=== PATIENT | male | born 1970 | race Caucasian/White ===

== ENCOUNTER 2017-01-03 12:57 | Inpatient (IN) | payer SELFPAY ==
[2017-01-03] MEDS ORDERED: HYDROmorphone 0.5 MG/0.5 ML Syringe IVPUSH ONE (13:29)
--- NOTE | 2017-01-03 13:33 | EDM.PDOC ---
[id number]: PAIN IN STOMACH AREA Time Seen by Provider: 01/03/17 13:15 Source of Information: Reports: Patient History Limitations: Reports: No Limitations - History of Present Illness INITIAL COMMENTS - FREE TEXT/NARRATIVE: 46-year-old male with lower abdominal pain for the past 48 hours. He stayed home from work on Sunday because he didn't feel well, thought he was a little better yesterday so went to work but was in a lot of pain by the time he came home. Did not sleep well last night and now he has significant lower abdominal pain, worse just to the right of midline in the suprapubic area. He feels if he urinates it actually helps the pain small amount. His developed a fever this morning. No history of abdominal surgeries or chronic illness. No testicular swelling or pain. Onset: Gradual (3 days ago) Location: Reports: Abdomen Quality: Reports: Pressure, Stabbing Severity: Moderate Worsens with: Reports: Movement Associated Symptoms: Reports: Fever/Chills, Loss of Appetite, Malaise. Denies: Nausea/Vomiting Pelvic Pain Score (Numeric/FACES): 10 - Related Data Allergies Allergy/AdvReac Type Severity Reaction Status Date / Time Penicillins Allergy Swelling Verified 01/03/17 13:23 Sulfa (Sulfonamide Allergy Swelling Verified 01/03/17 13:23 Antibiotics) Home Meds: Home Meds NK [No Known Home Meds] 01/03/17 [History] ED ROS GENERAL - Review of Systems Review Of Systems: See Below Constitutional: Reports: Fever, Malaise. Denies: Weakness HEENT: Reports: No Symptoms Respiratory: Denies: Shortness of Breath Cardiovascular: Denies: Chest Pain GI/Abdominal: Reports: Abdominal Pain. Denies: Diarrhea : Reports: Urgency, Other (Pain improves with urination) Skin: Reports: No Symptoms Neurological: Reports: No Symptoms Psychiatric: Reports: No Symptoms ED EXAM, GI/ABD - Physical Exam Exam: See Below Exam Limited By: No Limitations General Appearance: Alert, Mild Distress (Patient is quite uncomfortable, is having difficulty with ambulation) Respiratory/Chest: No Respiratory Distress, Lungs Clear Cardiovascular: Regular Rate, Rhythm GI/Abdominal Exam: Soft, Guarding, Rebound (Rebound tenderness is present across the lower abdomen, is guarding as well), Other (No groin pain bilaterally , no hernia) (Male) Exam: No: Testicular Mass Extremities: Normal Inspection Psychiatric: Normal Affect, Normal Mood Skin Exam: Warm, Dry Course - Vital Signs Last Recorded V/S: Last Vital Signs Temp 104.4 F H 01/03/17 17:30 Pulse 104 H 01/03/17 17:30 Resp 20 01/03/17 17:30 BP 113/68 01/03/17 17:30 Pulse Ox 91 L 01/03/17 17:30 - Orders/Labs/Meds Orders: Active Orders 24 hr Category Date Time Status Abdomen Pelvis w Cont [CT] Stat Exams 01/03/17 14:03 Taken HYDROmorphone [Dilaudid] Med 01/03/17 16:02 Active 0.5 - 1 mg IVPUSH Q2H PRN Medication Orders Acetaminophen (Tylenol) 650 mg PO Q4H PRN PRN Reason: Pain (Mild 1-3)/fever Last Admin: 01/03/17 17:17 Dose: 650 mg Hydromorphone HCl (Dilaudid) 0.5 - 1 mg IVPUSH Q2H PRN PRN Reason: Pain (severe 7-10) Last Admin: 01/03/17 17:18 Dose: 1 mg Ciprofloxacin/Dextrose 400 mg/ (Premix) 200 mls @ 200 mls/hr IV Q12H DEBBIE Metronidazole 500 mg/ Premix 100 mls @ 100 mls/hr IV Q8H DEBBIE Potassium Chloride/Dextrose/Sod Cl (D5 Ns With 20 Meq Kcl) 1,000 mls @ 100 mls/ hr IV ASDIRECTED DEBBIE Last Admin: 01/03/17 17:25 Dose: 100 mls/hr Ketorolac Tromethamine (Toradol) 30 mg IVPUSH Q6H PRN PRN Reason: Pain/Fever Stop: 01/08/17 16:59 Lactobacillus Rhamnosus (Culturelle) 1 cap PO BID DEBBIE Lorazepam (Ativan) 0.5 - 1 mg IVPUSH Q4H PRN PRN Reason: Nausea/Vomiting Ondansetron HCl (Zofran Odt) 4 mg PO Q6H PRN PRN Reason: Nausea able to take PO Ondansetron HCl (Zofran) 4 mg IV Q6H PRN PRN Reason: Nausea/Vomiting Pantoprazole Sodium (Protonix) 40 mg PO ACBREAKFAST DEBBIE Polyethylene Glycol (Miralax) 17 gm PO DAILY PRN PRN Reason: Constipation Senna/Docusate Sodium (Senna Plus) 1 tab PO BID PRN PRN Reason: Constipation Labs: Laboratory Tests 01/03/17 01/03/17 01/03/17 Range/Units 13:39 13:39 14:10 WBC 13.4 H (4.5-11.0) K/uL RBC 5.64 (4.30-5.90) M/uL Hgb 15.5 H (12.0-15.0) g/dL Hct 46.8 (40.0-54.0) % MCV 83 (80-98) fL MCH 28 (27-31) pg MCHC 33 (32-36) % Plt Count 240 (150-400) K/uL Neut % (Auto) 83 H (36-66) % Lymph % (Auto) 10 L (24-44) % [place] % (Auto) 6 (2-6) % Eos % (Auto) 0 L (2-4) % Baso % (Auto) 0 (0-1) % Sodium 136 L (140-148) mmol/L Potassium 4.2 (3.6-5.2) mmol/L Chloride 100 (100-108) mmol/L Carbon Dioxide 32 (21-32) mmol/L Anion Gap 8.2 (5.0-14.0) mmol/L BUN 14 (7-18) mg/dL Creatinine 1.2 (0.8-1.3) mg/dL Est Cr Clr Drug Dosing 82.63 mL/min Estimated GFR (MDRD) > 60 (>60) Glucose 109 H (74-106) mg/dL Calcium 8.8 (8.5-10.1) mg/dL Total Bilirubin 2.6 H (0.2-1.0) mg/dL AST 14 L (15-37) U/L ALT 33 (12-78) U/L Alkaline Phosphatase 84 (46-116) U/L Total Protein 8.2 (6.4-8.2) g/dL Albumin 3.4 (3.4-5.0) g/dL Globulin 4.8 H (2.3-3.5) g/dL Albumin/Globulin Ratio 0.7 L (1.2-2.2) Urine Color Yellow Urine Appearance Slightly cloudy Urine pH 7.0 (4.5-8.0) Ur Specific [place] 1.015 (1.008-1.030) Urine Protein Negative (NEGATIVE) mg/dL Urine Glucose (UA) Normal (NEGATIVE) mg/dL Urine Ketones Negative (NEGATIVE) mg/dL Urine Occult Blood Moderate (NEGATIVE) Urine Nitrite Negative (NEGAITVE) Urine Bilirubin Small (NEGATIVE) Urine Urobilinogen 4 (NORMAL) mg/dL Ur Leukocyte Esterase Negative (NEGATIVE) Urine RBC 10-20 H (0-5) Urine WBC 0-5 (0-5) Ur Epithelial Cells Few Amorphous Sediment Not seen Urine Bacteria Few Urine Mucus Not seen Meds: Medications Generic Name Dose Route Start Last Admin Trade Name Freq PRN Reason Stop Dose Admin Acetaminophen 650 mg 01/03/17 16:58 01/03/17 17:17 Tylenol PO 650 mg Q4H PRN Administration Pain (Mild 1-3)/fever Hydromorphone HCl 0.5 - 1 mg 01/03/17 16:02 01/03/17 17:18 Dilaudid IVPUSH 1 mg Q2H PRN Administration Pain (severe 7-10) Ciprofloxacin/Dextrose 400 mg/ 200 mls @ 200 mls/hr 01/03/17 21:00 Premix IV Q12H DEBBIE Metronidazole 500 mg/ Premix 100 mls @ 100 mls/hr 01/03/17 22:00 IV Q8H DEBBIE Potassium Chloride/Dextrose/Sod Cl 1,000 mls @ 100 mls/hr 01/03/17 16:58 17:25 D5 Ns With 20 Meq Kcl IV 100 mls/hr ASDIRECTED DEBBIE Administration Ketorolac Tromethamine 30 mg 01/03/17 16:58 Toradol IVPUSH 01/08/17 16:59 Q6H PRN Pain/Fever Lactobacillus Rhamnosus 1 cap 01/03/17 21:00 Culturelle PO BID DEBBIE Lorazepam 0.5 - 1 mg 01/03/17 16:58 Ativan IVPUSH Q4H PRN Nausea/Vomiting Ondansetron HCl 4 mg 01/03/17 16:58 Zofran Odt PO Q6H PRN Nausea able to take PO Ondansetron HCl 4 mg 01/03/17 16:58 Zofran IV Q6H PRN Nausea/Vomiting Pantoprazole Sodium 40 mg 01/04/17 07:30 Protonix PO ACBREAKFAST DEBBIE Polyethylene Glycol 17 gm 01/03/17 16:58 Miralax PO DAILY PRN Constipation Senna/Docusate Sodium 1 tab 01/03/17 16:58 Senna Plus PO BID PRN Constipation Discontinued Medications Generic Name Dose Route Start Last Admin Trade Name Freq PRN Reason Stop Dose Admin Hydromorphone HCl 0.5 mg 01/03/17 13:29 01/03/17 13:48 Dilaudid IVPUSH 01/03/17 13:30 0.5 mg ONETIME ONE Administration Hydromorphone HCl Confirm 01/03/17 13:37 Dilaudid Administered 01/03/17 13:38 Dose 1 mg .ROUTE .STK-MED ONE Sodium Chloride 1,000 mls @ 1,000 mls/hr 01/03/17 14:15 01/03/17 14:14 Normal Saline IV 1,000 mls/hr ASDIRECTED DEBBIE Administration Sodium Chloride 85 mls @ 3.5 mls/sec 01/03/17 14:15 01/03/17 14:53 Normal Saline IV 01/03/17 23:00 3.5 mls/sec ASDIRECTED DEBBIE Administration Cefoxitin Sodium 2 gm/ Sodium 50 mls @ 100 mls/hr 01/03/17 15:04 01/03/17 15: 29 Chloride IV 01/03/17 15:33 100 mls/hr ONETIME ONE Administration Iopamidol 150 ml 01/03/17 14:09 01/03/17 14:53 Isovue-300 (61%) IV 01/04/17 14:10 150 ml . DIRECTED PRN Administration RADIOLOGY EXAM Sodium Chloride 10 ml 01/03/17 14:09 01/03/17 14:53 Saline Flush FLUSH 01/03/17 14:10 10 ml ONETIME ONE Administration - Re-Assessments/Exams Free Text/Narrative Re-Assessment/Exam: 01/03/17 13:33 CBC and CMP as well as UA was obtained, IV started and patient was given 0.5 mg of IV Dilaudid. Intent is for an abdominal CT scan when creatinine returns. 01/03/17 15:50 White blood cell count is over 13,000, bilirubin 1.6, the rest of his labs are relatively normal. CT scan with IV contrast was obtained and showed diverticulitis of the sigmoid colon with microperforations. Patient will be hospitalized to the hospitalist service on IV antibiotics with surgical consultation if needed. 2 g of ceftazidime was started IV and he was also given 1 L of normal saline bolus. Departure - Departure Time of Disposition: 17:09 Disposition: Admitted As Inpatient 64 Condition: Fair Clinical Impression: Diverticulitis of colon with perforation Qualifiers: Diverticulitis bleeding: without bleeding Qualified Code(s): K57.20 - Diverticulitis of large intestine with perforation and abscess without bleeding - Discharge Information - My Orders Last 24 Hours: My Active Orders 01/03/17 14:03 Abdomen Pelvis w Cont [CT] Stat - Assessment/Plan Last 24 Hours: My Active Orders 01/03/17 14:03 Abdomen Pelvis w Cont [CT] Stat
[2017-01-03] MEDS ORDERED: HYDROmorphone 1 MG/ML Syringe ONE (13:37)
[2017-01-03] MEDS ORDERED: Sodium Chloride 0.9% 10 ML Syringe FLUSH ONE (14:09)
[2017-01-03] MEDS ORDERED: Iopamidol 612 MG/ML 150 ML Bottle IV PRN (14:09)
[2017-01-03] MEDS ORDERED: Sodium Chloride 0.9% 1,000 ML IV SCH (14:15)
[2017-01-03] MEDS ORDERED: cefOXitin 2 GM in Sodium Chloride 0.9% 50 ML IV ONE (15:04)
--- NOTE | 2017-01-03 16:20 | PCM.HP ---
H&P History of Present Illness - General Date of Service: 01/03/17 Admit Problem/Dx: Admission Diagnosis/Problem Admission Diagnosis/Problem Diverticulitis of colon with perforation Source of Information: Patient, Provider History Limitations: Reports: No Limitations - History of Present Illness Initial Comments - Free Text/Narative: Blayne presents to the emergency room today with 2 days of progressive mid abdominal pain. He reports sharp midabdominal pain that radiates throughout the abdomen. This is worse with movement and sitting down. Pain seems to be relieved by urinating. He has not been taking anything at home to make the pain better. He has developed nausea as well as vomiting during the day today. He has had subjective fevers over the past 48 hours and measured temperatures of 99.5. He has not had much of an appetite in the past 24 hours and has not eaten anything since last night. He has not noticed a change in his bowels or blood in his stool. No complaints of shortness of breath. No history of similar episodes. No sick contacts or travel. Workup in the emergency room revealed evidence for acute sigmoid diverticulitis with microperforations. He is febrile and has an elevated white blood cell count and will be admitted for IV antibiotics. Pelvic Pain Score (Numeric/FACES): 10 - Related Data Allergies/Adverse Reactions: Allergies Allergy/AdvReac Type Severity Reaction Status Date / Time Penicillins Allergy Swelling Verified 01/03/17 13:23 Sulfa (Sulfonamide Allergy Swelling Verified 01/03/17 13:23 Antibiotics) Home Medications: Home Meds NK [No Known Home Meds] 01/03/17 [History] Past Medical History - Past Surgical History Musculoskeletal Surgical History: Reports: Arthroscopic Knee, Carpal Tunnel Other Musculoskeletal Surgeries/Procedures:: right knee 1986. right wrist Social & Family History - Family History GI: Denies: Diverticulitis, Diverticulosis Oncologic: Denies: Colon - Tobacco Use Smoking Status *Q: Never Smoker - Caffeine Use Caffeine Use: Reports: Coffee - Alcohol Use Alcohol Use History: No - Recreational Drug Use Recreational Drug Use: No H&P Review of Systems - Review of Systems: Review Of Systems: See Below Free Text/Narrative: A complete 12 point review of systems was obtained. Pertinent positives and negatives are noted in the history of present illness. All other systems were reviewed and were negative except as noted. Exam - Exam Exam: See Below - Vital Signs Vital Signs: Last Vital Signs Temp 40 C H 01/03/17 15:06 Pulse 97 01/03/17 15:06 Resp 17 01/03/17 15:06 BP 166/79 H 01/03/17 15:06 Pulse Ox 97 01/03/17 15:06 Weight: 124.5 kg - Exam Quality Assessment: No: Supplemental Oxygen General: Alert, Oriented, Cooperative, Mild Distress HEENT: Conjunctiva Clear, Normal Nasal Septum. No: Mucosa Moist & [place] (dry), Scleral Icterus Neck: Supple, Trachea Midline. No: Lymphadenopathy, Thyromegaly Lungs: Clear to Auscultation, Normal Respiratory Effort Cardiovascular: Regular Rate, Regular Rhythm. No: Systolic Murmur GI/Abdominal Exam: Soft, No Distention, Tender (Moderate mid abdomen pain), Abnormal Bowel Sounds (Hypoactive). No: Guarding, Rebound Back Exam: Normal Inspection, Full Range of Motion Extremities: Normal Inspection, No Pedal Edema. No: Increased Warmth Peripheral Pulses: 2+: Dorsalis Pedis (L), Dorsalis Pedis (R) Skin: Warm, Dry, Intact Neuro Extensive - Mental Status: Alert, Oriented x3, Nl Response to Commands Neuro Extensive - Motor, Sensory, Reflexes: CN II-XII Intact. No: Dysarthria, Abnormal Motor, Tremor Psychiatric: Alert, Normal Affect - Patient Data Lab Results Last 24 hrs: Laboratory Results - last 24 hr 01/03/17 01/03/17 01/03/17 Range/Units 13:39 13:39 14:10 WBC 13.4 H (4.5-11.0) K/uL RBC 5.64 (4.30-5.90) M/uL Hgb 15.5 H (12.0-15.0) g/dL Hct 46.8 (40.0-54.0) % MCV 83 (80-98) fL MCH 28 (27-31) pg MCHC 33 (32-36) % Plt Count 240 (150-400) K/uL Neut % (Auto) 83 H (36-66) % Lymph % (Auto) 10 L (24-44) % [place] % (Auto) 6 (2-6) % Eos % (Auto) 0 L (2-4) % Baso % (Auto) 0 (0-1) % Sodium 136 L (140-148) mmol/L Potassium 4.2 (3.6-5.2) mmol/L Chloride 100 (100-108) mmol/L Carbon Dioxide 32 (21-32) mmol/L Anion Gap 8.2 (5.0-14.0) mmol/L BUN 14 (7-18) mg/dL Creatinine 1.2 (0.8-1.3) mg/dL Est Cr Clr Drug Dosing 82.63 mL/min Estimated GFR (MDRD) > 60 (>60) Glucose 109 H (74-106) mg/dL Calcium 8.8 (8.5-10.1) mg/dL Total Bilirubin 2.6 H (0.2-1.0) mg/dL AST 14 L (15-37) U/L ALT 33 (12-78) U/L Alkaline Phosphatase 84 (46-116) U/L Total Protein 8.2 (6.4-8.2) g/dL Albumin 3.4 (3.4-5.0) g/dL Globulin 4.8 H (2.3-3.5) g/dL Albumin/Globulin Ratio 0.7 L (1.2-2.2) Urine Color Yellow Urine Appearance Slightly cloudy Urine pH 7.0 (4.5-8.0) Ur Specific [place] 1.015 (1.008-1.030) Urine Protein Negative (NEGATIVE) mg/dL Urine Glucose (UA) Normal (NEGATIVE) mg/dL Urine Ketones Negative (NEGATIVE) mg/dL Urine Occult Blood Moderate (NEGATIVE) Urine Nitrite Negative (NEGAITVE) Urine Bilirubin Small (NEGATIVE) Urine Urobilinogen 4 (NORMAL) mg/dL Ur Leukocyte Esterase Negative (NEGATIVE) Urine RBC 10-20 H (0-5) Urine WBC 0-5 (0-5) Ur Epithelial Cells Few Amorphous Sediment Not seen Urine Bacteria Few Urine Mucus Not seen Result Diagrams: 01/03/17 13:39 01/03/17 13:39 Imaging Impressions Last 24 hrs: CT scan of the abdomen and pelvis - images personally reviewed - there is evidence for acute sigmoid diverticulitis with microperforations in the mid abdomen area. No evidence for abscess formation at this time. *Q Meaningful Use (ADM) - VTE *Q VTE Criteria *Q: - VTE Risk Assess *Q Each Risk Factor Represents 1 Point: Age 41 - 59 years, Obesity (BMI greater than 30) Total Score 1 Point Risk Factors: 2 Each Risk Factor Represents 2 Points: None Total Score 2 Point Risk Factors: 0 Each Risk Factor Represents 3 Points: None Total Score 3 Point Risk Factors: 0 Each Risk Factor Represents 5 Points: None Total Score 5 Point Risk Factors: 0 Venous Thromboembolism Risk Factor Score *Q: 2 - Stroke *Q Stroke Criteria *Q: - AMI *Q AMI Criteria *Q: - Problem List (1) Diverticulitis of colon with perforation SNOMED Code(s): 58094977 ICD Code: K57.20 - DVTRCLI OF LG INT W PERFORATION AND ABSCESS W/O BLEEDING Status: Acute Current Visit: Yes Qualifiers: Diverticulitis bleeding: without bleeding Qualified Code(s): K57.20 - Diverticulitis of large intestine with perforation and abscess without bleeding Problem List Initiated/Reviewed/Updated: Yes Orders Last 24hrs: Active Orders 24 hr Category Date Time Status Patient Status Manage Transfer [TRANSFER] Routine ADT 01/03/17 16:04 Ordered Abdomen Pelvis w Cont [CT] Stat Exams 01/03/17 14:03 Taken HYDROmorphone [Dilaudid] Med 01/03/17 16:02 Active 0.5 - 1 mg IVPUSH Q2H PRN Iopamidol [Isovue-300 (61%)] Med 01/03/17 14:09 Active 150 ml IV . DIRECTED PRN Sodium Chloride 0.9% [Normal Saline] 1,000 ml Med 01/03/17 14:15 Active IV ASDIRECTED Sodium Chloride 0.9% [Normal Saline] 85 ml Med 01/03/17 14:15 Active IV ASDIRECTED Resuscitation Status Routine Resus Stat 01/03/17 16:06 Ordered Medication Orders Hydromorphone HCl (Dilaudid) 0.5 - 1 mg IVPUSH Q2H PRN PRN Reason: Pain (severe 7-10) Sodium Chloride (Normal Saline) 1,000 mls @ 1,000 mls/hr IV ASDIRECTED DEBBIE Last Admin: 01/03/17 14:14 Dose: 1,000 mls/hr Sodium Chloride (Normal Saline) 85 mls @ 3.5 mls/sec IV ASDIRECTED DEBBIE Last Admin: 01/03/17 14:53 Dose: 3.5 mls/sec Iopamidol (Isovue-300 (61%)) 150 ml IV . DIRECTED PRN PRN Reason: RADIOLOGY EXAM Stop: 01/04/17 14:10 Last Admin: 01/03/17 14:53 Dose: 150 ml Assessment/Plan Comment:: Assessment and plan - Acute sigmoid diverticulitis with microperforation - CT scan suggests significant inflammation of the midabdomen with microperforations. No evidence for abscess formation. Significant fever, significant pain and leukocytosis. Patient would benefit from several days of inpatient management and IV antibiotics given the microperforations. No history of similar. -Ciprofloxacin and metronidazole -Pain control -IV fluids -Clear liquids -Surgical consultation if condition worsens -Outpatient colonoscopy Maintenance issues - - DVT prophylaxis - mechanical - GI prophylaxis - PPI - Nutrition - clear liquids - Ke[place] catheter - not indicated CODE STATUS - full code Admission justification - This patient will be admitted for inpatient services and is medically appropriate meeting medical necessity for inpatient admission as outlined in my documentation. I reasonably expect the patient will require inpatient services that span a period time over 2 midnights. I reasonably expect this patient to be discharged or transferred within 96 hours [facility]. Disposition - anticipate discharge home after the hospital stay Primary care physician - no primary care physician Kavon Hagen M.D.
[2017-01-03] MEDS ORDERED: Ondansetron 4 MG/2 ML SDV IV PRN (16:58)
[2017-01-03] MEDS ORDERED: LORazepam 2 MG/ML MDV IVPUSH PRN (16:58)
[2017-01-03] MEDS ORDERED: Ondansetron 4 MG Tab.DIS PO PRN (16:58)
[2017-01-03] MEDS ORDERED: Polyethylene Glycol 3350 Powder 17 GM Packet PO PRN (16:58)
[2017-01-03] MEDS: Acetaminophen 325 MG Tab PO PRN (17:17)
[2017-01-03] MEDS: HYDROmorphone 1 MG/ML Syringe IVPUSH PRN (17:18)
[2017-01-03] MEDS: Dextrose 5%-0.9% NaCl with KCl 1,000 ML IV SCH (17:25)
[2017-01-03] MEDS: Ketorolac 30 MG/ML SDV IVPUSH PRN (18:30)
[2017-01-03] MEDS: Ciprofloxacin in D5W 400 MG in Premix Bag 1 BAG IV SCH ×2 (20:28)
[2017-01-03] MEDS: Lactobacillus Rhamnosus GG (Probiotic) Cap PO SCH (20:30)
[2017-01-03] MEDS: metroNIDAZOLE/Normal Saline 500 MG in Premix Bag 1 BAG IV SCH (21:33)
[2017-01-04] MEDS: HYDROmorphone 1 MG/ML Syringe IVPUSH PRN (02:37)
[2017-01-04] MEDS: Acetaminophen 325 MG Tab PO PRN ×3 (02:43→18:50)
[2017-01-04] MEDS: Dextrose 5%-0.9% NaCl with KCl 1,000 ML IV SCH ×2 (04:44→20:36)
[2017-01-04] MEDS: metroNIDAZOLE/Normal Saline 500 MG in Premix Bag 1 BAG IV SCH ×3 (05:35→22:03)
[2017-01-04] MEDS: Lactobacillus Rhamnosus GG (Probiotic) Cap PO SCH ×2 (08:59→20:36)
[2017-01-04] MEDS: Pantoprazole 40 MG Tab.CR PO SCH (08:59)
[2017-01-04] MEDS: Ciprofloxacin in D5W 400 MG in Premix Bag 1 BAG IV SCH ×4 (08:59→20:35)
[2017-01-04] MEDS: Aztreonam/Dextrose-Water 1 GM in Premix Bag 1 BAG IV SCH ×2 (10:07→16:59)
--- NOTE | 2017-01-04 10:07 | PCM.PN ---
- General Info Date of Service: 01/04/17 Functional Status: Reports: Pain Controlled, Tolerating Diet - Review of Systems General: Reports: Fever Gastrointestinal: Reports: Abdominal Pain Systems Review Comment:: patient had difficulty with a fever overnight that finally seems to have broke this morning. Still has moderate mid abdominal pain but it seems a little better today, especially after having a bowel movement. No complaints of nausea no vomiting. Tolerating clear liquids so far. Blood cultures are negative so far. White blood cell count has risen from yesterday. Tolerating antibiotics so far. - Patient Data Vitals - most recent: Last Vital Signs Temp 37.7 C 01/04/17 07:18 Pulse 86 01/04/17 07:18 Resp 16 01/04/17 07:18 BP 110/77 01/04/17 07:18 Pulse Ox 97 01/04/17 07:18 Weight - most recent: 124.5 kg I&O - last 24 hours: Intake & Output 01/03/17 01/04/17 01/04/17 22:59 06:59 14:59 Intake Total 300 1015 900 Output Total 500 Balance 300 515 900 Lab Results last 24 hrs: Laboratory Results - last 24 hr 01/04/17 01/04/17 Range/Units 04:47 04:47 WBC 18.4 H (4.5-11.0) K/uL RBC 5.19 (4.30-5.90) M/uL Hgb 14.3 (12.0-15.0) g/dL Hct 43.4 (40.0-54.0) % MCV 84 (80-98) fL MCH 28 (27-31) pg MCHC 33 (32-36) % Plt Count 227 (150-400) K/uL Sodium 138 L (140-148) mmol/L Potassium 3.9 (3.6-5.2) mmol/L Chloride 103 (100-108) mmol/L Carbon Dioxide 26 (21-32) mmol/L Anion Gap 12.9 (5.0-14.0) mmol/L BUN 15 (7-18) mg/dL Creatinine 1.2 (0.8-1.3) mg/dL Est Cr Clr Drug Dosing 82.63 mL/min Estimated GFR (MDRD) > 60 (>60) Glucose 145 H (74-106) mg/dL Calcium 8.5 (8.5-10.1) mg/dL C-Reactive Protein 27.40 H (0.0-0.3) mg/dL Med Orders - Current: Current Medications Acetaminophen (Tylenol) 650 mg PO Q4H PRN PRN Reason: Pain (Mild 1-3)/fever Last Admin: 01/04/17 02:43 Dose: 650 mg Hydromorphone HCl (Dilaudid) 0.5 - 1 mg IVPUSH Q2H PRN PRN Reason: Pain (severe 7-10) Last Admin: 01/04/17 02:37 Dose: 1 mg Ciprofloxacin/Dextrose 400 mg/ (Premix) 200 mls @ 200 mls/hr IV Q12H [facility] Last Admin: 01/04/17 08:59 Dose: 200 mls/hr Metronidazole 500 mg/ Premix 100 mls @ 100 mls/hr IV Q8H [facility] Last Admin: 01/04/17 05:35 Dose: 100 mls/hr Potassium Chloride/Dextrose/Sod Cl (D5 Ns With 20 Meq Kcl) 1,000 mls @ 100 mls/ hr IV ASDIRECTED [facility] Last Admin: 01/04/17 04:44 Dose: 100 mls/hr Aztreonam/Dextrose 1 gm/ (Premix) 50 mls @ 100 mls/hr IV Q8H [facility] Ketorolac Tromethamine (Toradol) 30 mg IVPUSH Q6H PRN PRN Reason: Pain/Fever Stop: 01/08/17 16:59 Last Admin: 01/03/17 18:30 Dose: 30 mg Lactobacillus Rhamnosus (Culturelle) 1 cap PO BID [facility] Last Admin: 01/04/17 08:59 Dose: 1 cap Lorazepam (Ativan) 0.5 - 1 mg IVPUSH Q4H PRN PRN Reason: Nausea/Vomiting Ondansetron HCl (Zofran Odt) 4 mg PO Q6H PRN PRN Reason: Nausea able to take PO Ondansetron HCl (Zofran) 4 mg IV Q6H PRN PRN Reason: Nausea/Vomiting Pantoprazole Sodium (Protonix) 40 mg PO ACBREAKFAST [facility] Last Admin: 01/04/17 08:59 Dose: 40 mg Polyethylene Glycol (Miralax) 17 gm PO DAILY PRN PRN Reason: Constipation Senna/Docusate Sodium (Senna Plus) 1 tab PO BID PRN PRN Reason: Constipation Discontinued Medications Hydromorphone HCl (Dilaudid) 0.5 mg IVPUSH ONETIME ONE Stop: 01/03/17 13:30 Last Admin: 01/03/17 13:48 Dose: 0.5 mg Hydromorphone HCl (Dilaudid) Confirm Administered Dose 1 mg .ROUTE .STK-MED ONE Stop: 01/03/17 13:38 Last Admin: 01/03/17 18:38 Dose: Not Given Sodium Chloride (Normal Saline) 1,000 mls @ 1,000 mls/hr IV ASDIRECTED [facility] Last Admin: 01/03/17 14:14 Dose: 1,000 mls/hr Sodium Chloride (Normal Saline) 85 mls @ 3.5 mls/sec IV ASDIRECTED [facility] Stop: 01/03/17 23:00 Last Admin: 01/03/17 14:53 Dose: 3.5 mls/sec Cefoxitin Sodium 2 gm/ Sodium (Chloride) 50 mls @ 100 mls/hr IV ONETIME ONE Stop: 01/03/17 15:33 Last Admin: 01/03/17 15:29 Dose: 100 mls/hr Iopamidol (Isovue-300 (61%)) 150 ml IV . DIRECTED PRN PRN Reason: RADIOLOGY EXAM Stop: 01/04/17 14:10 Last Admin: 01/03/17 14:53 Dose: 150 ml Sodium Chloride (Saline Flush) 10 ml FLUSH ONETIME ONE Stop: 01/03/17 14:10 Last Admin: 01/03/17 14:53 Dose: 10 ml - Exam Quality Assessment: No: supplemental oxygen General: alert, oriented, cooperative, no acute distress Neck: supple Lungs: Normal Respiratory Effort Cardiovascular: Regular Rate, Regular Rhythm GI/Abdominal Exam: Soft, No Distention, Tender Extremities: Normal Inspection, No Pedal Edema Skin: warm, dry Psy/Mental Status: alert, normal affect - Problem List & Annotations (1) Diverticulitis of colon with perforation SNOMED Code(s): 78790924 Code(s): K57.20 - DVTRCLI OF LG INT W PERFORATION AND ABSCESS W/O BLEEDING Status: Acute Current Visit: Yes Qualifiers: Diverticulitis bleeding: without bleeding Qualified Code(s): K57.20 - Diverticulitis of large intestine with perforation and abscess without bleeding - Problem List Review Problem List Initiated/Reviewed/Updated: Yes - My Orders Last 24 Hours: My Active Orders 01/03/17 16:06 Resuscitation Status Routine 01/03/17 16:58 Patient Status [ADT] Routine Intake and Output [RC] QSHIFT Notify Provider Vital Signs [RC] ASDIRECTED Oxygen Therapy [RC] PRN Up ad Lavonne [RC] ASDIRECTED VTE/DVT Education [RC] Per Unit Routine Vital Signs [RC] Q4H Acetaminophen [Tylenol] 650 mg PO Q4H PRN Dextrose 5%-0.9% NaCl with KCl [D5 NS with 20 mEq KCl] 1,000 ml IV ASDIRECTED Docusate Sodium/Sennosides [Senna Plus] 1 tab PO BID PRN Ketorolac [Toradol] 30 mg IVPUSH Q6H PRN LORazepam [Ativan] 0.5 - 1 mg IVPUSH Q4H PRN Ondansetron [Zofran ODT] 4 mg PO Q6H PRN Ondansetron [Zofran] 4 mg IV Q6H PRN Polyethylene Glycol 3350 [MiraLAX] 17 gm PO DAILY PRN Sequential Compression Device [OM.PC] Per Unit Routine 01/03/17 21:00 Ciprofloxacin in D5W [Cipro in D5W 400 MG/200 ML] 400 mg Premix Bag 1 bag IV Q12H Lactobacillus Rhamnosus GG [Culturelle] 1 cap PO BID 01/03/17 22:00 metroNIDAZOLE/Normal Saline [Flagyl 500 MG in NS 100 ML] 500 mg Premix Bag 1 bag IV Q8H 01/03/17 Dinner Clear Liquid Diet [DIET] 01/04/17 07:30 Pantoprazole [ProTONIX] 40 mg PO ACBREAKFAST 01/04/17 09:00 Aztreonam/Dextrose-Water [Azactam in Dextrose,Iso-Osmotic 1 GM/50 ML] 1 gm Premix Bag 1 bag IV Q8H 01/05/17 05:00 BASIC METABOLIC PANEL,BMP [CHEM] Timed CBC W/O DIFF,HEMOGRAM [HEME] Timed (1) MAGNESIUM [CHEM] Timed - Plan Plan:: Assessment and plan - Acute sigmoid diverticulitis with microperforation - CT scan suggests fairly impressive inflammation with microperforations. White blood cell count has risen since yesterday. Patient febrile much of the night. Pain is a little better today. -Ciprofloxacin and metronidazole -add aztreonam -Pain control -IV fluids -Clear liquids -Surgical consultation if condition worsens -Outpatient colonoscopy Maintenance issues - - DVT prophylaxis - mechanical - GI prophylaxis - PPI - Nutrition - clear liquids Disposition - anticipate discharge home after the hospital stay Kavon Hagen M.D.
[2017-01-04] MEDS: Ketorolac 30 MG/ML SDV IVPUSH PRN ×2 (10:13→18:47)
[2017-01-05] MEDS: Aztreonam/Dextrose-Water 1 GM in Premix Bag 1 BAG IV SCH ×3 (00:29→17:10)
[2017-01-05] MEDS: Acetaminophen 325 MG Tab PO PRN ×2 (03:06→19:54)
[2017-01-05] MEDS: Ketorolac 30 MG/ML SDV IVPUSH PRN (04:17)
[2017-01-05] MEDS: metroNIDAZOLE/Normal Saline 500 MG in Premix Bag 1 BAG IV SCH ×3 (05:57→22:56)
[2017-01-05] MEDS: Lactobacillus Rhamnosus GG (Probiotic) Cap PO SCH ×2 (07:59→21:35)
[2017-01-05] MEDS: Pantoprazole 40 MG Tab.CR PO SCH (07:59)
[2017-01-05] MEDS ORDERED: oxyCODONE 5 MG Tab PO PRN (10:03)
--- NOTE | 2017-01-05 10:05 | PCM.PN ---
- General Info Date of Service: 01/05/17 Functional Status: Reports: Pain Controlled, Tolerating Diet, Ambulating - Review of Systems General: Reports: Fever Gastrointestinal: Reports: Abdominal Pain Systems Review Comment:: Patient did have a fever again overnight and had a general feeling of unwell with this but the fever spike was not as high as previous fevers. This morning his abdominal pain is quite a bit improved. He has been having bowel movements and has not had any blood in his stool. No complaints of nausea. White blood cell count is now trending down. Cultures are negative at this point. - Patient Data Vitals - most recent: Last Vital Signs Temp 37.4 C 01/05/17 07:26 Pulse 70 01/05/17 07:26 Resp 16 01/05/17 07:26 BP 113/78 01/05/17 07:26 Pulse Ox 98 01/05/17 07:26 Weight - most recent: 124.5 kg I&O - last 24 hours: Intake & Output 01/04/17 01/05/17 01/05/17 22:59 06:59 14:59 Intake Total 300 2470 Balance 300 2470 Lab Results last 24 hrs: Laboratory Results - last 24 hr 01/05/17 01/05/17 Range/Units 05:00 05:00 WBC 14.5 H (4.5-11.0) K/uL RBC 4.90 (4.30-5.90) M/uL Hgb 13.2 (12.0-15.0) g/dL Hct 41.0 (40.0-54.0) % MCV 84 (80-98) fL MCH 27 (27-31) pg MCHC 32 (32-36) % Plt Count 216 (150-400) K/uL Sodium 140 (140-148) mmol/L Potassium 3.8 (3.6-5.2) mmol/L Chloride 106 (100-108) mmol/L Carbon Dioxide 24 (21-32) mmol/L Anion Gap 9.9 (5.0-14.0) mmol/L BUN 14 (7-18) mg/dL Creatinine 1.1 (0.8-1.3) mg/dL Est Cr Clr Drug Dosing 90.27 mL/min Estimated GFR (MDRD) > 60 (>60) Glucose 133 H (74-106) mg/dL Calcium 8.6 (8.5-10.1) mg/dL Magnesium 1.7 L (1.8-2.4) mg/dL Med Orders - Current: Current Medications Acetaminophen (Tylenol) 650 mg PO Q4H PRN PRN Reason: Pain (Mild 1-3)/fever Last Admin: 01/05/17 03:06 Dose: 650 mg Hydromorphone HCl (Dilaudid) 0.5 - 1 mg IVPUSH Q2H PRN PRN Reason: Pain (severe 7-10) Last Admin: 01/04/17 02:37 Dose: 1 mg Ciprofloxacin/Dextrose 400 mg/ (Premix) 200 mls @ 200 mls/hr IV Q12H [facility] Last Admin: 01/04/17 20:35 Dose: 200 mls/hr Metronidazole 500 mg/ Premix 100 mls @ 100 mls/hr IV Q8H [facility] Last Admin: 01/05/17 05:57 Dose: 100 mls/hr Aztreonam/Dextrose 1 gm/ (Premix) 50 mls @ 100 mls/hr IV Q8H [facility] Last Admin: 01/05/17 07:59 Dose: 100 mls/hr Ketorolac Tromethamine (Toradol) 30 mg IVPUSH Q6H PRN PRN Reason: Pain/Fever Stop: 01/08/17 16:59 Last Admin: 01/05/17 04:17 Dose: 30 mg Lactobacillus Rhamnosus (Culturelle) 1 cap PO BID [facility] Last Admin: 01/05/17 07:59 Dose: 1 cap Lorazepam (Ativan) 0.5 - 1 mg IVPUSH Q4H PRN PRN Reason: Nausea/Vomiting Ondansetron HCl (Zofran Odt) 4 mg PO Q6H PRN PRN Reason: Nausea able to take PO Ondansetron HCl (Zofran) 4 mg IV Q6H PRN PRN Reason: Nausea/Vomiting Pantoprazole Sodium (Protonix) 40 mg PO ACBREAKFAST [facility] Last Admin: 01/05/17 07:59 Dose: 40 mg Polyethylene Glycol (Miralax) 17 gm PO DAILY PRN PRN Reason: Constipation Senna/Docusate Sodium (Senna Plus) 1 tab PO BID PRN PRN Reason: Constipation Discontinued Medications Hydromorphone HCl (Dilaudid) 0.5 mg IVPUSH ONETIME ONE Stop: 01/03/17 13:30 Last Admin: 01/03/17 13:48 Dose: 0.5 mg Hydromorphone HCl (Dilaudid) Confirm Administered Dose 1 mg .ROUTE .STK-MED ONE Stop: 01/03/17 13:38 Last Admin: 01/03/17 18:38 Dose: Not Given Sodium Chloride (Normal Saline) 1,000 mls @ 1,000 mls/hr IV ASDIRECTED [facility] Last Admin: 01/03/17 14:14 Dose: 1,000 mls/hr Sodium Chloride (Normal Saline) 85 mls @ 3.5 mls/sec IV ASDIRECTED [facility] Stop: 01/03/17 23:00 Last Admin: 01/03/17 14:53 Dose: 3.5 mls/sec Cefoxitin Sodium 2 gm/ Sodium (Chloride) 50 mls @ 100 mls/hr IV ONETIME ONE Stop: 01/03/17 15:33 Last Admin: 01/03/17 15:29 Dose: 100 mls/hr Potassium Chloride/Dextrose/Sod Cl (D5 Ns With 20 Meq Kcl) 1,000 mls @ 100 mls/ hr IV ASDIRECTED [facility] Last Admin: 01/04/17 20:36 Dose: 100 mls/hr Iopamidol (Isovue-300 (61%)) 150 ml IV . DIRECTED PRN PRN Reason: RADIOLOGY EXAM Stop: 01/04/17 14:10 Last Admin: 01/03/17 14:53 Dose: 150 ml Sodium Chloride (Saline Flush) 10 ml FLUSH ONETIME ONE Stop: 01/03/17 14:10 Last Admin: 01/03/17 14:53 Dose: 10 ml - Exam Quality Assessment: No: supplemental oxygen General: alert, oriented, cooperative, no acute distress HEENT: Pupils equal. No: Scleral icterus Neck: supple Lungs: Normal Respiratory Effort GI/Abdominal Exam: Soft, Non-Tender, No Distention Extremities: No Pedal Edema Skin: warm, dry Psy/Mental Status: alert, normal affect - Problem List & Annotations (1) Diverticulitis of colon with perforation SNOMED Code(s): 63472199 Code(s): K57.20 - DVTRCLI OF LG INT W PERFORATION AND ABSCESS W/O BLEEDING Status: Acute Current Visit: Yes Qualifiers: Diverticulitis bleeding: without bleeding Qualified Code(s): K57.20 - Diverticulitis of large intestine with perforation and abscess without bleeding - Problem List Review Problem List Initiated/Reviewed/Updated: Yes - My Orders Last 24 Hours: My Active Orders 01/05/17 10:02 Magnesium Sulfate/Water [Magnesium Sulfate 2 GM in Water 50 ML] 2 gm Premix Bag 1 bag IV ONETIME 01/05/17 10:03 oxyCODONE 5 mg PO Q4H PRN 01/05/17 10:15 Dextrose 5%-0.9% NaCl with KCl [D5 NS with 20 mEq KCl] 1,000 ml IV ASDIRECTED 01/06/17 05:00 CBC W/O DIFF,HEMOGRAM [HEME] Timed (1) POTASSIUM,K [CHEM] Timed - Plan Plan:: Assessment and plan - Acute sigmoid diverticulitis with microperforation - CT scan suggests fairly impressive inflammation with microperforations. White blood cell count has improved overnight. Tolerating current antibiotics. Abdominal pain has improved. -Ciprofloxacin and metronidazole (planning a total of 14 days of therapy with microperforations) -Continue aztreonam -Pain control -Decrease IV fluids -Clear liquid, consider full liquids later in the day -Surgical consultation if condition worsens -Outpatient colonoscopy Maintenance issues - - DVT prophylaxis - mechanical - GI prophylaxis - PPI - Nutrition - clear liquids Disposition - anticipate discharge home after the hospital stay Kavon Hagen M.D.
[2017-01-05] MEDS ORDERED: Dextrose 5%-0.9% NaCl with KCl 1,000 ML IV SCH (10:15)
[2017-01-05] MEDS ORDERED: Magnesium Sulfate/Water 2 GM in Premix Bag 1 BAG IV ONE (10:30)
[2017-01-05] MEDS: Ciprofloxacin in D5W 400 MG in Premix Bag 1 BAG IV SCH ×4 (10:36→21:35)
[2017-01-06] MEDS: Aztreonam/Dextrose-Water 1 GM in Premix Bag 1 BAG IV SCH ×3 (01:56→16:45)
[2017-01-06] MEDS: metroNIDAZOLE/Normal Saline 500 MG in Premix Bag 1 BAG IV SCH ×3 (05:36→22:46)
[2017-01-06] MEDS: Acetaminophen 325 MG Tab PO PRN (05:42)
[2017-01-06] MEDS: Lactobacillus Rhamnosus GG (Probiotic) Cap PO SCH ×2 (08:52→20:38)
[2017-01-06] MEDS: Pantoprazole 40 MG Tab.CR PO SCH (08:52)
[2017-01-06] MEDS: Ciprofloxacin in D5W 400 MG in Premix Bag 1 BAG IV SCH ×4 (10:17→20:38)
[2017-01-06] MEDS ORDERED: Dextrose 5%-0.9% NaCl with KCl 1,000 ML IV SCH (10:42)
--- NOTE | 2017-01-06 10:43 | PCM.PN ---
- General Info Date of Service: 01/06/17 Functional Status: Reports: Pain Controlled, Tolerating Diet - Review of Systems General: Reports: Fever Gastrointestinal: Denies: Abdominal Pain, Nausea Systems Review Comment:: No acute events overnight though he did have another fever last night. Fever spike was not as high as the last couple of nights. No fevers this morning and clinically feeling better. No significant abdominal pain or diarrhea at this time. Tolerating his diet and appetite has been improving. Strength seems to be improving. No positive cultures as of now. Tolerating antibiotics. - Patient Data Vitals - most recent: Last Vital Signs Temp 37.4 C 01/06/17 07:10 Pulse 75 01/06/17 07:10 Resp 16 01/06/17 07:10 BP 114/72 01/06/17 07:10 Pulse Ox 94 L 01/06/17 07:10 Weight - most recent: 124.5 kg I&O - last 24 hours: Intake & Output 01/05/17 01/06/17 01/06/17 22:59 06:59 14:59 Intake Total 1400 1855 Balance 1400 1855 Lab Results last 24 hrs: Laboratory Results - last 24 hr 01/06/17 01/06/17 Range/Units 05:43 05:43 WBC 9.7 (4.5-11.0) K/uL RBC 4.69 (4.30-5.90) M/uL Hgb 12.7 (12.0-15.0) g/dL Hct 39.3 L (40.0-54.0) % MCV 84 (80-98) fL MCH 27 (27-31) pg MCHC 32 (32-36) % Plt Count 229 (150-400) K/uL Potassium 4.2 (3.6-5.2) mmol/L Med Orders - Current: Current Medications Acetaminophen (Tylenol) 650 mg PO Q4H PRN PRN Reason: Pain (Mild 1-3)/fever Last Admin: 01/06/17 05:42 Dose: 650 mg Hydromorphone HCl (Dilaudid) 0.5 - 1 mg IVPUSH Q2H PRN PRN Reason: Pain (severe 7-10) Last Admin: 01/04/17 02:37 Dose: 1 mg Ciprofloxacin/Dextrose 400 mg/ (Premix) 200 mls @ 200 mls/hr IV Q12H [facility] Last Admin: 01/06/17 10:17 Dose: 200 mls/hr Metronidazole 500 mg/ Premix 100 mls @ 100 mls/hr IV Q8H [facility] Last Admin: 01/06/17 05:36 Dose: 100 mls/hr Aztreonam/Dextrose 1 gm/ (Premix) 50 mls @ 100 mls/hr IV Q8H [facility] Last Admin: 01/06/17 08:52 Dose: 100 mls/hr Potassium Chloride/Dextrose/Sod Cl (D5 Ns With 20 Meq Kcl) 1,000 mls @ 50 mls/ hr IV ASDIRECTED [facility] Last Admin: 01/05/17 10:29 Dose: 50 mls/hr Ketorolac Tromethamine (Toradol) 30 mg IVPUSH Q6H PRN PRN Reason: Pain/Fever Stop: 01/08/17 16:59 Last Admin: 01/05/17 04:17 Dose: 30 mg Lactobacillus Rhamnosus (Culturelle) 1 cap PO BID [facility] Last Admin: 01/06/17 08:52 Dose: 1 cap Lorazepam (Ativan) 0.5 - 1 mg IVPUSH Q4H PRN PRN Reason: Nausea/Vomiting Ondansetron HCl (Zofran Odt) 4 mg PO Q6H PRN PRN Reason: Nausea able to take PO Ondansetron HCl (Zofran) 4 mg IV Q6H PRN PRN Reason: Nausea/Vomiting Oxycodone HCl (Oxycodone) 5 mg PO Q4H PRN PRN Reason: Pain Pantoprazole Sodium (Protonix) 40 mg PO ACBREAKFAST [facility] Last Admin: 01/06/17 08:52 Dose: 40 mg Polyethylene Glycol (Miralax) 17 gm PO DAILY PRN PRN Reason: Constipation Senna/Docusate Sodium (Senna Plus) 1 tab PO BID PRN PRN Reason: Constipation Discontinued Medications Hydromorphone HCl (Dilaudid) 0.5 mg IVPUSH ONETIME ONE Stop: 01/03/17 13:30 Last Admin: 01/03/17 13:48 Dose: 0.5 mg Hydromorphone HCl (Dilaudid) Confirm Administered Dose 1 mg .ROUTE .STK-MED ONE Stop: 01/03/17 13:38 Last Admin: 01/03/17 18:38 Dose: Not Given Sodium Chloride (Normal Saline) 1,000 mls @ 1,000 mls/hr IV ASDIRECTED [facility] Last Admin: 01/03/17 14:14 Dose: 1,000 mls/hr Sodium Chloride (Normal Saline) 85 mls @ 3.5 mls/sec IV ASDIRECTED [facility] Stop: 01/03/17 23:00 Last Admin: 01/03/17 14:53 Dose: 3.5 mls/sec Cefoxitin Sodium 2 gm/ Sodium (Chloride) 50 mls @ 100 mls/hr IV ONETIME ONE Stop: 01/03/17 15:33 Last Admin: 01/03/17 15:29 Dose: 100 mls/hr Potassium Chloride/Dextrose/Sod Cl (D5 Ns With 20 Meq Kcl) 1,000 mls @ 100 mls/ hr IV ASDIRECTED [facility] Last Admin: 01/04/17 20:36 Dose: 100 mls/hr Magnesium Sulfate 2 gm/ Premix 50 mls @ 25 mls/hr IV ONETIME ONE Stop: 01/05/17 12:29 Last Admin: 01/05/17 11:45 Dose: 25 mls/hr Iopamidol (Isovue-300 (61%)) 150 ml IV . DIRECTED PRN PRN Reason: RADIOLOGY EXAM Stop: 01/04/17 14:10 Last Admin: 01/03/17 14:53 Dose: 150 ml Sodium Chloride (Saline Flush) 10 ml FLUSH ONETIME ONE Stop: 01/03/17 14:10 Last Admin: 01/03/17 14:53 Dose: 10 ml - Exam Quality Assessment: No: supplemental oxygen General: alert, oriented, cooperative, no acute distress Neck: supple Lungs: Normal Respiratory Effort GI/Abdominal Exam: Soft, No Distention Extremities: No Pedal Edema Skin: warm, dry Psy/Mental Status: alert, normal affect - Problem List & Annotations (1) Diverticulitis of colon with perforation SNOMED Code(s): 12011608 Code(s): K57.20 - DVTRCLI OF LG INT W PERFORATION AND ABSCESS W/O BLEEDING Status: Acute Current Visit: Yes Qualifiers: Diverticulitis bleeding: without bleeding Qualified Code(s): K57.20 - Diverticulitis of large intestine with perforation and abscess without bleeding - Problem List Review Problem List Initiated/Reviewed/Updated: Yes - My Orders Last 24 Hours: My Active Orders 01/05/17 10:03 oxyCODONE 5 mg PO Q4H PRN 01/05/17 10:15 Dextrose 5%-0.9% NaCl with KCl [D5 NS with 20 mEq KCl] 1,000 ml IV ASDIRECTED 01/06/17 10:42 Dextrose 5%-0.9% NaCl with KCl [D5 NS with 20 mEq KCl] 1,000 ml IV ASDIRECTED 01/06/17 Lunch Regular Diet [DIET] - Plan Plan:: Assessment and plan - Acute sigmoid diverticulitis with microperforation - CT scan suggests fairly impressive inflammation with microperforations. Ongoing clinical improvement. Planning one additional day of IV antibiotic therapy given the severity of infection and microperforations prior to discharge home which should be tomorrow if stable overnight. -Ciprofloxacin and metronidazole (planning a total of 14 days of therapy with microperforations) -Continue aztreonam -Pain control -IV fluids at to keep open -Soft diet -Surgical consultation if condition worsens -Outpatient colonoscopy Maintenance issues - - DVT prophylaxis - mechanical - GI prophylaxis - PPI - Nutrition - soft diet Disposition - anticipate discharge home after the hospital stay Kavon Hagen M.D.
[2017-01-07] MEDS: Aztreonam/Dextrose-Water 1 GM in Premix Bag 1 BAG IV SCH (01:55)
[2017-01-07] MEDS: metroNIDAZOLE/Normal Saline 500 MG in Premix Bag 1 BAG IV SCH (06:04)
[2017-01-07 08:20] VITALS: BP 117/75
[2017-01-07] MEDS: Pantoprazole 40 MG Tab.CR PO SCH (08:21)
[2017-01-07] MEDS: Lactobacillus Rhamnosus GG (Probiotic) Cap PO SCH (08:21)
[2017-01-07] MEDS: Ciprofloxacin in D5W 400 MG in Premix Bag 1 BAG IV SCH ×2 (08:21)
--- NOTE | 2017-01-07 09:04 | PCM.DCSUM1 ---
Discharge Summary - Hospital Course Brief History: Healthy 46-year-old male who presented with abdominal pain and fever and was admitted for management of acute diverticulitis with microperforations. - Discharge Data Discharge Date: 01/07/17 Discharge Disposition: Home, Self-Care 01 Condition: Good - Discharge Diagnosis/Problem(s) (1) Diverticulitis of colon with perforation SNOMED Code(s): 92572737 ICD Code: K57.20 - DVTRCLI OF LG INT W PERFORATION AND ABSCESS W/O BLEEDING Status: Acute Qualifiers: Diverticulitis bleeding: without bleeding Qualified Code(s): K57.20 - Diverticulitis of large intestine with perforation and abscess without bleeding - Patient Summary/Data Hospital Course: Robson presented to the emergency room with mid abdominal pain, nausea, vomiting and fevers. Workup in the emergency room suggested acute diverticulitis with some microperforations of the sigmoid colon. He was started on antibiotics and admitted to the hospital. Initial antibiotic therapy included ciprofloxacin and metronidazole. Overnight he had some difficulties with fever and his white blood cell count nic from the time of admission. At this point despite negative cultures I elected to add aztreonam for additional gram-negative coverage. Over the next 24 hours he had improvements in his temperature curve and abdominal pain. His blood cultures remained negative. He continued to show ongoing clinical improvement with decreasing abdominal pain and essentially resolution of his pain by the time of discharge. He has been tolerating his clear liquid diet and this was advanced to full liquids and then to soft foods prior to discharge. He has not had any increase in pain after advances in his diet. Over the past 24 hours prior to discharge he has had only low-grade temperature elevations but no true fevers. Clinically is doing well today and has been up and walking around and is essentially pain-free. No difficulty with nausea or vomiting. We elected for slightly longer hospitalization to provide additional IV antibiotic therapy given his microperforations and a concern for the possibility of developing an abscess. Also with the microperforations I've elected to utilize a longer course of antibiotic therapy. He'll be going home with an additional 10 days of ciprofloxacin and metronidazole for a total of 14 days of antibiotics. He will need a colonoscopy as an outpatient and this will be set up for him with Dr. Garcia as an outpatient. He was instructed to seek medical attention if he develops fevers or increasing abdominal pain is they may be a sign of developing abscess. - Patient Instructions Diet: Regular Diet as Tolerated Diet, Other: soft and bland foods for the next week Activity: As Tolerated Driving: May Drive Today Showering/Bathing: May Shower Notify Provider of: Fever, Increased Pain, Nausea and/or Vomiting Other/Special Instructions: 1. You were in the hospital for management of acute diverticulitis with microperforations. The infection has improved using antibiotic therapy. I do recommend 10 additional days of antibiotic therapy with ciprofloxacin taken twice daily and metronidazole taken 3 times daily. Your next dose of ciprofloxacin is due tonight and your next dose of metronidazole is due this afternoon. You should take the metronidazole with food to help avoid stomach upset which is the most common side effect. 2. I would recommend a soft and bland diet for the next week before slowly introducing normal and usual foods into your diet. 3. With the microperforations there is an increased risk of abscess formation following an infection of this severity. If you develop increasing abdominal pain, nausea, vomiting or you have a return of the high fevers either while you are on antibiotics or after you have completed them please seek medical attention immediately. - Discharge Plan Prescriptions/Med Rec: Ciprofloxacin [Ciprofloxacin HCl] 500 mg PO BID #19 tab metroNIDAZOLE [Metronidazole] 500 mg PO TID #29 tablet Home Medications: Home Meds Ciprofloxacin [Ciprofloxacin HCl] 500 mg PO BID #19 tab 01/07/17 [Rx] metroNIDAZOLE [Metronidazole] 500 mg PO TID #29 tablet 01/07/17 [Rx] Patient Handouts: Diverticulitis, Ciprofloxacin tablets, Metronidazole tablets or capsules Referrals: Willian Garcia MD [Physician] - (Colonoscopy in 4 weeks) - Discharge Summary/Plan Comment DC Time >30 min.: No (25) - Patient Data Vitals - Most Recent: Last Vital Signs Temp 37.4 C 01/07/17 08:19 Pulse 76 01/07/17 08:19 Resp 16 01/07/17 08:19 BP 117/75 01/07/17 08:19 Pulse Ox 94 L 01/07/17 08:19 Weight - Most Recent: 124.5 kg I&O - Last 24 hours: Intake & Output 01/06/17 01/07/17 01/07/17 22:59 06:59 14:59 Intake Total 2394 902 Balance 2394 902 Med Orders - Current: Current Medications Acetaminophen (Tylenol) 650 mg PO Q4H PRN PRN Reason: Pain (Mild 1-3)/fever Last Admin: 01/06/17 05:42 Dose: 650 mg Hydromorphone HCl (Dilaudid) 0.5 - 1 mg IVPUSH Q2H PRN PRN Reason: Pain (severe 7-10) Last Admin: 01/04/17 02:37 Dose: 1 mg Ciprofloxacin/Dextrose 400 mg/ (Premix) 200 mls @ 200 mls/hr IV Q12H [facility] Last Admin: 01/07/17 08:21 Dose: 100 mls/hr Metronidazole 500 mg/ Premix 100 mls @ 100 mls/hr IV Q8H [facility] Last Admin: 01/07/17 06:04 Dose: 100 mls/hr Aztreonam/Dextrose 1 gm/ (Premix) 50 mls @ 100 mls/hr IV Q8H [facility] Last Admin: 01/07/17 01:55 Dose: 100 mls/hr Potassium Chloride/Dextrose/Sod Cl (D5 Ns With 20 Meq Kcl) 1,000 mls @ 25 mls/ hr IV ASDIRECTED [facility] Last Admin: 01/07/17 01:56 Dose: 25 mls/hr Ketorolac Tromethamine (Toradol) 30 mg IVPUSH Q6H PRN PRN Reason: Pain/Fever Stop: 01/08/17 16:59 Last Admin: 01/05/17 04:17 Dose: 30 mg Lactobacillus Rhamnosus (Culturelle) 1 cap PO BID [facility] Last Admin: 01/07/17 08:21 Dose: 1 cap Lorazepam (Ativan) 0.5 - 1 mg IVPUSH Q4H PRN PRN Reason: Nausea/Vomiting Ondansetron HCl (Zofran Odt) 4 mg PO Q6H PRN PRN Reason: Nausea able to take PO Ondansetron HCl (Zofran) 4 mg IV Q6H PRN PRN Reason: Nausea/Vomiting Oxycodone HCl (Oxycodone) 5 mg PO Q4H PRN PRN Reason: Pain Pantoprazole Sodium (Protonix) 40 mg PO ACBREAKFAST [facility] Last Admin: 01/07/17 08:21 Dose: 40 mg Polyethylene Glycol (Miralax) 17 gm PO DAILY PRN PRN Reason: Constipation Senna/Docusate Sodium (Senna Plus) 1 tab PO BID PRN PRN Reason: Constipation Discontinued Medications Hydromorphone HCl (Dilaudid) 0.5 mg IVPUSH ONETIME ONE Stop: 01/03/17 13:30 Last Admin: 01/03/17 13:48 Dose: 0.5 mg Hydromorphone HCl (Dilaudid) Confirm Administered Dose 1 mg .ROUTE .STK-MED ONE Stop: 01/03/17 13:38 Last Admin: 01/03/17 18:38 Dose: Not Given Sodium Chloride (Normal Saline) 1,000 mls @ 1,000 mls/hr IV ASDIRECTED [facility] Last Admin: 01/03/17 14:14 Dose: 1,000 mls/hr Sodium Chloride (Normal Saline) 85 mls @ 3.5 mls/sec IV ASDIRECTED [facility] Stop: 01/03/17 23:00 Last Admin: 01/03/17 14:53 Dose: 3.5 mls/sec Cefoxitin Sodium 2 gm/ Sodium (Chloride) 50 mls @ 100 mls/hr IV ONETIME ONE Stop: 01/03/17 15:33 Last Admin: 01/03/17 15:29 Dose: 100 mls/hr Potassium Chloride/Dextrose/Sod Cl (D5 Ns With 20 Meq Kcl) 1,000 mls @ 100 mls/ hr IV ASDIRECTED [facility] Last Admin: 01/04/17 20:36 Dose: 100 mls/hr Magnesium Sulfate 2 gm/ Premix 50 mls @ 25 mls/hr IV ONETIME ONE Stop: 01/05/17 12:29 Last Admin: 01/05/17 11:45 Dose: 25 mls/hr Potassium Chloride/Dextrose/Sod Cl (D5 Ns With 20 Meq Kcl) 1,000 mls @ 50 mls/ hr IV ASDIRECTED [facility] Last Admin: 01/05/17 10:29 Dose: 50 mls/hr Iopamidol (Isovue-300 (61%)) 150 ml IV . DIRECTED PRN PRN Reason: RADIOLOGY EXAM Stop: 01/04/17 14:10 Last Admin: 01/03/17 14:53 Dose: 150 ml Sodium Chloride (Saline Flush) 10 ml FLUSH ONETIME ONE Stop: 01/03/17 14:10 Last Admin: 01/03/17 14:53 Dose: 10 ml *Q Meaningful Use (DIS) - VTE *Q VTE Criteria *Q: - Stroke *Q Stroke Criteria *Q: - AMI *Q AMI Criteria *Q:
== END 2017-01-07 09:45 | disposition home or self-care (01) | DRG 392 ==
LOC: JP.ED 12:57 → JP.MS 16:04
PROVIDERS: ADMIT Internal Medicine; ATTEND Internal Medicine
DX: K57.20 Diverticulitis of large intestine with perforation and abscess without bleeding (principal); R50.9 Fever, unspecified; Z79.2 Long term (current) use of antibiotics; Z88.0 Allergy status to penicillin; Z88.2 Allergy status to sulfonamides
CPT/HCPCS: 36415; 74177; 80048; 80053; 81001; 83735; 84132; 85025; 85027; 86140; 96361; 96365; 96375; 96376; 99223-AI; 99232; 99238; 99285; 99285-25; A9270-GY; J0694; J0744; J1170; J1885; J3475; J3480; J3490; J7030; J7040; J7050

== ENCOUNTER 2017-02-09 07:46 | Day surgery (SDC) | payer SELFPAY ==
[2017-02-09] MEDS ORDERED: Propofol 200 MG/20 ML SDV ONE (08:05)
[2017-02-09] MEDS ORDERED: fentaNYL 100 MCG/2 ML SDV ONE (08:05)
[2017-02-09] MEDS ORDERED: Midazolam 1 MG/ML 2 ML SDV ONE (08:05)
[2017-02-09] MEDS ORDERED: Lactated Ringers 1,000 ML IV SCH (08:30)
[2017-02-09 11:13] VITALS: BP 118/83
--- NOTE | 2017-02-09 15:34 | OR ---
DATE OF PROCEDURE: 02/09/2017 PREOPERATIVE DIAGNOSIS: History of diverticulitis. POSTOPERATIVE DIAGNOSIS: Unremarkable colonoscopy, history of diverticulitis. PROCEDURE: Colonoscopy to the cecum. ANESTHESIA: IV anesthesia with monitored anesthesia care. INDICATION: This 46-year-old white male is referred for a colonoscopy. A month ago he was in the hospital with a CAT scan confirmed acute diverticulitis with microperforations. He now feels fine. I counseled him for a colonoscopy with possible biopsy and/or polypectomy including risks and alternatives, and he gave his informed consent to proceed. DESCRIPTION OF PROCEDURE: The patient was placed in the left lateral decubitus position. IV anesthesia was administered by the Anesthesia Service. Time-out was held. A rectal exam was performed, which was unremarkable. The flexible video Olympus colonoscope was introduced through his anus, up his rectum, and out his colon all the way to the cecum. Once the cecum was reached, the scope was slowly withdrawn, examining the mucosa throughout. No mucosal abnormalities were noted. The scope was retroflexed in the rectum with the distal rectum appearing unremarkable. The scope was straightened and removed. He tolerated the procedure well. Willian Garcia MD /[id number] JESUSITA
== END 2017-02-09 11:18 | disposition home or self-care (01) ==
LOC: JP.SDS 07:46
PROVIDERS: ATTEND Surgery
DX: Z09 Encounter for follow-up examination after completed treatment for conditions other than malignant neoplasm (principal); Z87.19 Personal history of other diseases of the digestive system; Z88.0 Allergy status to penicillin; Z88.2 Allergy status to sulfonamides
CPT/HCPCS: 45378; J2250; J2704; J3010; J7120

== ENCOUNTER 2017-09-29 21:10 | Emergency (ER) | payer OTHER ==
[2017-09-29 21:28] VITALS: BP 155/83
--- NOTE | 2017-09-29 22:03 | EDM.PDOC ---
ED HPI GENERAL MEDICAL PROBLEM - General Chief Complaint: ENT Problem Stated Complaint: PINK EYE Time Seen by Provider: 09/29/17 21:56 Source of Information: Reports: Patient History Limitations: Reports: No Limitations - History of Present Illness INITIAL COMMENTS - FREE TEXT/NARRATIVE: This patient comes in complaining of pinkeye. It's been going on about 2 days. He complains of a red itchy eye with a lot of discharge. Vision is slightly blurry. A family member had pinkeye recently. He denies history of any kind of injury or foreign body right eye Pain Score (Numeric/FACES): 5 - Related Data Allergies Allergy/AdvReac Type Severity Reaction Status Date / Time Penicillins Allergy Swelling Verified 09/29/17 21:26 Sulfa (Sulfonamide Allergy Swelling Verified 09/29/17 21:26 Antibiotics) Home Meds: Home Meds Bacillus Coagulans [Probiotic] 1 tab PO DAILY 02/09/17 [History] Multivit-Min/FA/Lycopen/Lutein [Men 50 Plus Multivitamin Tab] 1 tab PO DAILY [History] Past Medical History HEENT History: Reports: Allergic Rhinitis, Impaired Vision Gastrointestinal History: Reports: Diverticulosis, Other (See Below) Other Gastrointestinal History: Diverticulitis Musculoskeletal History: Reports: None Endocrine/Metabolic History: Reports: Obesity/BMI 30+ - Infectious Disease History Infectious Disease History: Reports: Chicken Pox, Measles, Mumps - Past Surgical History HEENT Surgical History: Reports: None GI Surgical History: Reports: None Endocrine Surgical History: Reports: None Musculoskeletal Surgical History: Reports: Arthroscopic Knee, Carpal Tunnel Other Musculoskeletal Surgeries/Procedures:: right knee 1986. right wrist Social & Family History - Tobacco Use Smoking Status *Q: Never Smoker Years of Tobacco use: 5 Packs/Tins Daily: 0.5 Used Tobacco, but Quit: Yes Month/Year Tobacco Last Used: 1988 Second Hand Smoke Exposure: No - Caffeine Use Caffeine Use: Reports: None - Alcohol Use Days Per Week of Alcohol Use: 0 - Recreational Drug Use Recreational Drug Use: No ED ROS ENT - Review of Systems Review Of Systems: ROS reveals no pertinent complaints other than HPI. ED EXAM, ENT - Physical Exam Exam: See Below Exam Limited By: No Limitations General Appearance: Mild Distress Eye Exam: Right Eye: Conjunctival Injection, Other (The conjunctiva of the left eye is very injected as well as the palpebral conjunctiva. There is a small amount of purulent discharge. There is quite a bit of tearing. The cornea was examined with the light reflex and I don't see any abnormalities. Pupil is equal and reactive and extraocular movements are normal. Anterior chamber is normal) Course - Vital Signs Last Recorded V/S: Last Vital Signs Temp 36.8 C 09/29/17 21: Pulse 76 09/29/17 21: Resp 18 09/29/17 21: BP 155/83 H 09/29/17 21: Pulse Ox 97 09/29/17 21: Departure - Departure Time of Disposition: 22:02 Disposition: Home, Self-Care 01 Condition: Fair Clinical Impression: [place] eye disease of right eye - Discharge Information Instructions: Bacterial Conjunctivitis, [id number] Referrals: PCP,None [Primary Care Provider] - Forms: ED Department Discharge Additional Instructions: Use the gentamicin drops as directed. You may put these drops in both eyes. Keep using the drops for up to 48 hours after symptoms are gone. If no better in 2 or [address] your Dr. Practice good handwashing since this is contagious
== END 2017-09-29 22:09 | disposition home or self-care (01) ==
LOC: JP.ED 21:10
DX: H10.9 Unspecified conjunctivitis (principal); E66.9 Obesity, unspecified; Z88.0 Allergy status to penicillin; Z88.2 Allergy status to sulfonamides; Z90.49 Acquired absence of other specified parts of digestive tract; Z68.38 Body mass index [BMI] 38.0-38.9, adult
CPT/HCPCS: 99283

== ENCOUNTER 2020-04-11 16:54 | Emergency (ER) | payer SELFPAY ==
[2020-04-11] MEDS ORDERED: Bupivacaine 0.25%/EPINEPHrine 1:200,000 30 ML SDV INFILT ONE (17:10)
[2020-04-11] MEDS ORDERED: Bacitracin Oint 1 GM U/D Packet TOP ONE (17:12)
[2020-04-11 17:16] VITALS: BP 129/72; PULSE 70
[2020-04-11] MEDS ORDERED: Acetaminophen/HYDROcodone 325-5 MG Tab PO ONE (17:18)
[2020-04-11] MEDS ORDERED: Bupivacaine 0.25% 10 ML SDV ONE (17:19)
--- NOTE | 2020-04-11 17:20 | EDM.PDOC ---
ED HPI GENERAL MEDICAL PROBLEM - General Chief Complaint: Upper Extremity Injury/Pain Stated Complaint: CUT LEFT FINGER Time Seen by Provider: 04/11/20 17:10 Source of Information: Reports: Patient, RN Notes Reviewed, Other (Friend) History Limitations: Reports: No Limitations - History of Present Illness INITIAL COMMENTS - FREE TEXT/NARRATIVE: Blayne presents today with complaints of left 3rd finger pain, injury from wood splitter. He reports he did have work gloves at the time of the incident. He states his left middle finger got slammed between the woodsplitter. He denies any other injury. He denies fever, chills, nausea, vomiting or concerns. He reports tetanus status up to date. - Related Data Allergies Allergy/AdvReac Type Severity Reaction Status Date / Time Penicillins Allergy Swelling Verified 04/11/20 17:06 Sulfa (Sulfonamide Allergy Swelling Verified 04/11/20 17:06 Antibiotics) Home Meds: Home Meds NK [No Known Home Meds] 04/11/20 [History] Past Medical History HEENT History: Reports: Allergic Rhinitis, Impaired Vision Gastrointestinal History: Reports: Diverticulosis, Other (See Below) Other Gastrointestinal History: Diverticulitis Musculoskeletal History: Reports: None Endocrine/Metabolic History: Reports: Obesity/BMI 30+ - Infectious Disease History Infectious Disease History: Reports: Chicken Pox, Measles, Mumps - Past Surgical History HEENT Surgical History: Reports: None GI Surgical History: Reports: None Endocrine Surgical History: Reports: None Musculoskeletal Surgical History: Reports: Arthroscopic Knee, Carpal Tunnel Other Musculoskeletal Surgeries/Procedures:: right knee 1987. right wrist Social & Family History - Tobacco Use Tobacco Use Status *Q: Never Tobacco User - Caffeine Use Caffeine Use: Reports: None Review of Systems - Review of Systems Review Of Systems: See Below Constitutional: Reports: No Symptoms Eyes: Reports: No Symptoms Respiratory: Reports: No Symptoms Cardiovascular: Reports: No Symptoms Musculoskeletal: Reports: Other (left middle finger pain at site of injury) Skin: Reports: Wound, Other (avulsion wound to left lateral 3rd finger tip, bleeding controlled) Neurological: Reports: No Symptoms Psychiatric: Reports: No Symptoms ED EXAM, GENERAL - Physical Exam Exam: See Below Exam Limited By: No Limitations General Appearance: Alert, WD/WN, Mild Distress Respiratory/Chest: No Respiratory Distress, Lungs Clear, Normal Breath Sounds, No Accessory Muscle Use, Chest Non-Tender. No: Crackles, Rales, Rhonchi, Wheezing Cardiovascular: Normal Peripheral Pulses, Regular Rate, Rhythm, No Edema, No Gallop, No Murmur, No Rub Peripheral Pulses: 4+: Radial (L), Radial (R) Extremities: Normal Range of Motion, No Pedal Edema, Normal Capillary Refill, Other (pain to left middle finger at site of injury) Neurological: Alert, Oriented, Normal Cognition, Normal Gait, Normal Reflexes, No Motor/Sensory Deficits Psychiatric: Normal Affect, Normal Mood Skin Exam: Warm, Dry, Wound/Incision (left 3rd finger, 1/4th nail avulsion, crush injury with laceration) Lymphatic: No Adenopathy ED TRAUMA EXTREMITY PROCEDURES - Laceration/Wound Repair Left Middle Distal Digit - 3rd (Middle) Lac/Wound Length In cm: 5 Course - Vital Signs Last Recorded V/S: Last Vital Signs Temp 36.3 C 04/11/20 17:14 Pulse 70 04/11/20 17:14 Resp 14 04/11/20 17:14 BP 129/72 04/11/20 17:14 Pulse Ox 98 04/11/20 17:14 - Orders/Labs/Meds Orders: Active Orders 24 hr Category Date Time Status Fingers Third Digit Lt F2 [CR] Stat Exams 04/11/20 17:06 Taken EKG 12 Lead [EK] Routine Ther 04/11/20 18:30 Stop Req Meds: Medications Discontinued Medications Generic Name Dose Route Start Last Admin Trade Name Freq PRN Reason Stop Dose Admin Hydrocodone Bitart/Acetaminophen 1 tab 04/11/20 17:18 04/11/20 17:26 [place] 325-5 Mg PO 04/11/20 17:19 1 tab ONETIME ONE Administration Bacitracin 1 dose 04/11/20 17:12 04/11/20 17:38 Bacitracin Oint 1 Gm TOP 04/11/20 17:13 1 dose ONETIME ONE Administration Bupivacaine HCl Confirm 04/11/20 17:19 Sensorcaine-Mpf 0.25% Administered 04/11/20 17:20 Dose 10 ml .ROUTE .STK-MED ONE Bupivacaine HCl/Epinephrine Bitart 30 ml 04/11/20 17:10 [place] 0.25%/Epinephrine 1:200,000 INFILT 04/11/20 17:11 ONETIME ONE Bupivacaine HCl/Epinephrine Bitart 10 ml 04/11/20 17:22 [place] 0.25%/Epinephrine 1:200,000 INFILT 04/11/20 17:23 ONETIME ONE Bupivacaine HCl/Epinephrine Bitart Confirm 04/11/20 17:31 Marc[place] 0.5%/Epinephrine 1:200,000 Administered 04/11/20 17:32 Dose 50 ml .ROUTE .STK-MED ONE Bupivacaine HCl/Epinephrine Bitart 50 ml 04/11/20 17:35 04/11/20 17:38 Marcaine 0.5%/Epinephrine 1:200,000 NERVRT 04/11/20 17:36 50 ml ONETIME ONE Administration Influenza Virus Vaccine 1 each 04/11/20 17:09 Pharmacy To Dose - Influenza Vaccine IM 04/11/20 17:10 ONETIME ONE Influenza Virus Vaccine 60 mcg 04/11/20 18:00 04/11/20 17:27 Fluzone Quad [id number] Syringe IM 04/11/20 18:01 60 mcg .ONCE ONE Administration - Radiology Interpretation Free Text/Narrative:: Left 3rd finger x-ray reviewed, wet read, no acute findings noted. Radiologist read pending. Departure - Departure Time of Disposition: 18:20 Disposition: Home, Self-Care 01 Condition: Good Clinical Impression: Laceration of finger of left hand, Partial avulsion of fingernail, Crushing injury of finger of left hand - Discharge Information Instructions: Sutured Wound Care Referrals: PCP,None [Primary Care Provider] - Forms: ED Department Discharge, ED Return to Work/School Form Additional Instructions: You have been evaluated and treated for left 3rd finger injury from wood splitter with partial avulsion of lateral fingertip/nail. Take ibuprofen 800mg by mouth three times a day for pain Take acetaminophen 1000mg by mouth three times a day for pain Take tramadol 50mg three times a day as needed for pain if not well controlled- can make you sleepy, do not take when working or driving. Take cephalexin 1000mg by mouth twice per day to prevent infection for 10 days. Keep finger elevated to help with pain. Keep current dressing on for 24 hours. Clean wound with soap and water once a day, apply bacitracin and vaseline gauze followed by wrap until healed. Return for any worsening, issues, signs of infection or concerns. Return to emergency room or report to your primary provider to have sutures removed in 7 days. Sepsis Event Note (ED) - Evaluation Sepsis Screening Result: No Definite Risk - Focused Exam Vital Signs: Vital Signs Temp Pulse Resp BP Pulse Ox 04/11/20 17:14 36.3 C 70 14 129/72 98 - My Orders Last 24 Hours: My Active Orders 04/11/20 17:06 Fingers Third Digit Lt F2 [CR] Stat 04/11/20 18:30 EKG 12 Lead [EK] Routine - Assessment/Plan Last 24 Hours: My Active Orders 04/11/20 17:06 Fingers Third Digit Lt F2 [CR] Stat 04/11/20 18:30 EKG 12 Lead [EK] Routine Assessment:: Laceration of finger of left hand, Partial avulsion of fingernail, Crushing injury of finger of left hand Plan: evaluated and treated for left 3rd finger injury from wood splitter with partial avulsion of lateral fingertip/nail. Take ibuprofen 800mg by mouth three times a day for pain Take acetaminophen 1000mg by mouth three times a day for pain Take tramadol 50mg three times a day as needed for pain if not well controlled- can make you sleepy, do not take when working or driving. Take cephalexin 1000mg by mouth twice per day to prevent infection for 10 days. Keep finger elevated to help with pain. Keep current dressing on for 24 hours. Clean wound with soap and water once a day, apply bacitracin and vaseline gauze followed by wrap until healed. Return for any worsening, issues, signs of infection or concerns. Return to emergency room or report to your primary provider to have sutures removed in 7 days.
[2020-04-11] MEDS ORDERED: Bupivacaine 0.25%/EPINEPHrine 1:200,000 10 ML SDV INFILT ONE (17:22)
[2020-04-11] MEDS ORDERED: Bupivacaine 0.5%/EPINEPHrine 1:200,000 50 ML MDV ONE (17:31)
[2020-04-11] MEDS ORDERED: Bupivacaine 0.5%/EPINEPHrine 1:200,000 50 ML MDV NERVRT ONE (17:35)
[2020-04-11] MEDS ORDERED: FLU VACC QS2020-21(6MOS UP)/PF 60 MCG/0.5 ML SYRINGE IM ONE (18:00)
--- NOTE | 2020-04-12 09:18 | CR ---
Fingers Third Digit Lt F2 CLINICAL HISTORY: Crush injury FINDINGS: There is soft tissue disruption at the tip of the third digit. There is a small bony fragment off the tuft IMPRESSION: Small tuft fracture Soft tissue disruption
== END 2020-04-11 18:34 | disposition home or self-care (01) ==
LOC: JP.ED 16:54
DX: S67.193A Crushing injury of left middle finger, initial encounter (principal); Z88.0 Allergy status to penicillin; Z88.2 Allergy status to sulfonamides; E66.9 Obesity, unspecified; Z23 Encounter for immunization; W27.8XXA Contact with other nonpowered hand tool, initial encounter
CPT/HCPCS: 11760; 73140; 90471; 90686; 99283; A9270; J3490; G0008

== ENCOUNTER 2020-07-11 10:27 | Emergency (ER) | payer OTHER ==
--- NOTE | 2020-07-11 11:12 | EDM.PDOC ---
ED HPI GENERAL MEDICAL PROBLEM - General Chief Complaint: Chest Pain Stated Complaint: CHEST DISCOMFORT PAST TWO DAY Time Seen by Provider: 07/11/20 10:45 Source of Information: Reports: Patient, Family, Old Records, RN History Limitations: Reports: No Limitations - History of Present Illness INITIAL COMMENTS - FREE TEXT/NARRATIVE: 49-year-old male who has been perfectly well and functioning until Sunday evening some 2 days ago when he noted some discomfort in his upper chest. Had had some peppers or something for dinner and after that he began to have discomfort and wondered if it was something to do with eating. However the discomfort in his upper chest persisted through the night and intermittently on Sunday now again today on Sunday. The discomfort seems to be predominant when he is laying down and he does not have it when he stands up except may be when he exerts himself but he may get the feeling into his neck on the right side. Denies diaphoresis or nausea. No history of any cardiac disease and no family history of cardiac disease. No smoking. In general he is on a treadmill but has not been on the treadmill since this started on Sunday. They were out and about on Sunday and did not seem to have an ongoing issue but again it is not usually a problem when he is upright. It certainly not a severe pain or pressure but a feeling and stays there when he lays down but resolves when he sits up typically. No GI indiscretion in the past that he knows about. Chest Pain Score (Numeric/FACES): 5 - Related Data Allergies Allergy/AdvReac Type Severity Reaction Status Date / Time Penicillins Allergy Swelling Verified 07/11/20 10:39 Sulfa (Sulfonamide Allergy Swelling Verified 07/11/20 10:39 Antibiotics) Home Meds: Home Meds NK [No Known Home Meds] 04/11/20 [History] Past Medical History HEENT History: Reports: Allergic Rhinitis Gastrointestinal History: Reports: Diverticulosis, Other (See Below) Other Gastrointestinal History: Diverticulitis Musculoskeletal History: Reports: None Endocrine/Metabolic History: Reports: Obesity/BMI 30+ - Infectious Disease History Infectious Disease History: Reports: Chicken Pox, Measles, Mumps - Past Surgical History Musculoskeletal Surgical History: Reports: Arthroscopic Knee, Carpal Tunnel Other Musculoskeletal Surgeries/Procedures:: right knee 1986. right wrist Social & Family History - Tobacco Use Tobacco Use Status *Q: Never Tobacco User - Caffeine Use Caffeine Use: Reports: Coffee - Recreational Drug Use Recreational Drug Use: No ED ROS GENERAL - Review of Systems Review Of Systems: See Below Constitutional: Reports: No Symptoms, Other (Review of systems are done and at least 10 and no problem noted other than the chest problem issues above) ED EXAM, GENERAL - Physical Exam Exam: See Below Free Text/Narrative:: 49-year-old male sitting upright on the gurney in no real distress pressure mildly elevated 145/95 with no history of hypertension. HEENT shows eyes ears nose throat to be normal. Tongue is midline. No facial droop. Neck is supple normal range of motion chest is clear with a regular rate and rhythm but he has occasional premature beats Known pain on compression of the chest. Abdomen soft active bowel sounds nontender extremities deformity or edema skin inspection palpation is normal neurologic physiologic urine tone Exam Limited By: No Limitations General Appearance: Alert, WD/WN, No Apparent Distress Course - Vital Signs Text/Narrative:: Chest x-ray my review does not show any obvious abnormalities white count differential chemistries are all normal with a negative D-dimer and a negative troponin EKG has a regular sinus rhythm at a rate of 64 and what appears to be some premature atrial contractions which are unknown to him before. At 1236 on my discharge examination he has been comfortable sitting up in a gurney in no further discomfort. He does give a history of using Pepcid for GERD in the past but not recently. My plan will be to give him a trial of Protonix and follow-up with his physician in the office for repeat evaluation if he does not respond to return for new or worse symptoms. 12:39 PM and I spoke with Dr. Sanchez the roll press operator in [place] who recommends that a cardiac echo may be in order and follow-up with PMD. PACs typically are inconsequential I will order an outpatient cardiac echo and put the patient on Protonix Last Recorded V/S: Last Vital Signs Temp 36.9 C 07/11/20 10:34 Pulse 65 07/11/20 11:04 Resp 16 07/11/20 11:04 BP 128/80 07/11/20 11:04 Pulse Ox 95 07/11/20 11:04 - Orders/Labs/Meds Orders: Active Orders 24 hr Category Date Time Status Chest 1V Frontal [CR] Stat Exams 07/11/20 11:04 Taken UA W/MICROSCOPIC [URIN] Stat Lab 07/11/20 11:04 Ordered Labs: Laboratory Tests 07/11/20 07/11/20 07/11/20 Range/Units 11:18 11:18 11:18 WBC 5.9 (4.5-11.0) K/uL RBC 5.99 H (4.30-5.90) M/uL Hgb 15.8 H D (12.0-15.0) g/dL Hct 49.2 (40.0-54.0) % MCV 82 (80-98) fL MCH 26 L (27-31) pg MCHC 32 (32-36) % Plt Count 242 (150-400) K/uL D-Dimer, Quantitative 472.50 (0.0-500.0) ng/mL ABG Hemoglobin (13.5-18.0) g/dL ABG Oxyhemoglobin % ABG Carboxyhemoglobin (0.0-1.6) % ABG Methemoglobin % VBG pH (7.350-7.450) VBG pCO2 mm/Hg VBG pO2 mm/Hg VBG HCO3 mmol/L VBG Total CO2 mmol/L VBG O2 Saturation VBG O2 Content %vol VBG Base Excess mm/L O2 Delivery Device Sodium (140-148) mmol/L Potassium (3.6-5.2) mmol/L Chloride (100-108) mmol/L Carbon Dioxide (21-32) mmol/L Anion Gap (5.0-14.0) mmol/L BUN (7-18) mg/dL Creatinine (0.8-1.3) mg/dL Est Cr Clr Drug Dosing mL/min Estimated GFR (MDRD) (>60) Glucose (74-106) mg/dL Calcium (8.5-10.1) mg/dL Total Bilirubin (0.2-1.0) mg/dL AST (15-37) U/L ALT (12-78) U/L Alkaline Phosphatase (46-116) U/L Troponin I (0.000-0.056) ng/mL C-Reactive Protein 0.56 H (0.0-0.3) mg/dL NT-Pro-B Natriuret Pep 26 (5-125) pg/mL Total Protein (6.4-8.2) g/dL Albumin (3.4-5.0) g/dL Globulin (2.3-3.5) g/dL Albumin/Globulin Ratio (1.2-2.2) 07/11/20 07/11/20 Range/Units 11:18 11:18 WBC (4.5-11.0) K/uL RBC (4.30-5.90) M/uL Hgb (12.0-15.0) g/dL Hct (40.0-54.0) % MCV (80-98) fL MCH (27-31) pg MCHC (32-36) % Plt Count (150-400) K/uL D-Dimer, Quantitative (0.0-500.0) ng/mL ABG Hemoglobin 16.5 (13.5-18.0) g/dL ABG Oxyhemoglobin 83.7 % ABG Carboxyhemoglobin 1.8 H (0.0-1.6) % ABG Methemoglobin 0.8 % VBG pH 7.422 (7.350-7.450) VBG pCO2 41.8 mm/Hg VBG pO2 52.6 mm/Hg VBG HCO3 26.7 mmol/L VBG Total CO2 22.7 mmol/L VBG O2 Saturation 85.9 VBG O2 Content 19.3 %vol VBG Base Excess 2.5 mm/L O2 Delivery Device Room air Sodium 137 L (140-148) mmol/L Potassium 4.2 (3.6-5.2) mmol/L Chloride 103 (100-108) mmol/L Carbon Dioxide 27 (21-32) mmol/L Anion Gap 11.2 (5.0-14.0) mmol/L BUN 14 (7-18) mg/dL Creatinine 1.0 (0.8-1.3) mg/dL Est Cr Clr Drug Dosing 95.92 mL/min Estimated GFR (MDRD) > 60 (>60) Glucose 116 H (74-106) mg/dL Calcium 8.7 (8.5-10.1) mg/dL Total Bilirubin 0.9 D (0.2-1.0) mg/dL AST 18 (15-37) U/L ALT 49 (12-78) U/L Alkaline Phosphatase 85 (46-116) U/L Troponin I < 0.017 (0.000-0.056) ng/mL C-Reactive Protein (0.0-0.3) mg/dL NT-Pro-B Natriuret Pep (5-125) pg/mL Total Protein 7.3 (6.4-8.2) g/dL Albumin 3.4 (3.4-5.0) g/dL Globulin 3.9 H (2.3-3.5) g/dL Albumin/Globulin Ratio 0.9 L (1.2-2.2) Departure - Departure Time of Disposition: 12:50 Disposition: Home, Self-Care 01 Condition: Good Clinical Impression: PAC (premature atrial contraction), Chest discomfort Instructions: Premature Atrial Contraction Referrals: PCP,None [Primary Care Provider] - Forms: ED Department Discharge Additional Instructions: Trial on Protonix 20 mg daily and referral for cardiac echogram followed by primary care follow-up Sepsis Event Note (ED) - Evaluation Sepsis Screening Result: No Definite Risk - Focused Exam Vital Signs: Vital Signs Temp Pulse Resp BP Pulse Ox 07/11/20 11:04 65 16 128/80 95 07/11/20 10:34 36.9 C 59 L 19 147/95 H 96 - My Orders Last 24 Hours: My Active Orders 07/11/20 11:04 Chest 1V Frontal [CR] Stat UA W/MICROSCOPIC [URIN] Stat - Assessment/Plan Last 24 Hours: My Active Orders 07/11/20 11:04 Chest 1V Frontal [CR] Stat UA W/MICROSCOPIC [URIN] Stat
[2020-07-11 11:25] VITALS: BP 128/80; PULSE 65
--- NOTE | 2020-07-12 12:08 | CR ---
CHEST: Portable 07/11/2020 11:26 AM CLINICAL HISTORY:Chest pain COMPARISON:None FINDINGS: The heart size, pulmonary vascularity and hilar structures are normal. No infiltrate effusion or pneumothorax is seen. IMPRESSION: No acute cardiopulmonary process.
== END 2020-07-11 13:22 | disposition home or self-care (01) ==
LOC: JP.ED 10:27
DX: I49.1 Atrial premature depolarization (principal); E66.9 Obesity, unspecified; Z68.35 Body mass index [BMI] 35.0-35.9, adult; Z88.0 Allergy status to penicillin; Z88.2 Allergy status to sulfonamides
CPT/HCPCS: 36415; 71045; 71045-26; 80053; 82803; 83880; 84484; 85027; 85379; 86140; 93010; 99284; 99285-25

== ENCOUNTER 2022-02-18 17:59 | Emergency (ER) | payer OTHER ==
[2022-02-18 18:51] VITALS: BP 147/92; PULSE 77
[2022-02-18] MEDS ORDERED: Lidocaine 1% 5 ML VIAL INJECT ONE (19:41)
[2022-02-18] MEDS ORDERED: HYDROmorphone 1 MG/ML Syringe IM ONE (19:41)
[2022-02-18] MEDS ORDERED: Bacitracin Oint 1 GM U/D Packet TOP ONE (19:41)
[2022-02-18] MEDS ORDERED: ceFAZolin 1 GM Vial IM ONE (20:03)
== END 2022-02-18 21:05 | disposition home or self-care (01) ==
LOC: JP.ED 17:59
DX: S62.522A Displaced fracture of distal phalanx of left thumb, initial encounter for closed fracture (principal); S67.02XA Crushing injury of left thumb, initial encounter; E66.9 Obesity, unspecified; Z88.0 Allergy status to penicillin; Z88.2 Allergy status to sulfonamides; Z68.39 Body mass index [BMI] 39.0-39.9, adult; W23.1XXA Caught, crushed, jammed, or pinched between stationary objects, initial encounter; Y99.0 Civilian activity done for income or pay
CPT/HCPCS: 12002; 73140; 96372; 99283; J0690; J1170

== ENCOUNTER 2022-10-22 22:44 | Emergency (ER) | payer MEDICAID, OTHER ==
[2022-10-22 23:26] VITALS: BP 150/83; PULSE 77
[2022-10-22] MEDS ORDERED: Sodium Chloride 0.9% 10 ML Syringe FLUSH PRN (23:51)
[2022-10-23] MEDS ORDERED: Iopamidol 612 MG/ML 100 ML Bottle IV STA (00:11)
[2022-10-23] MEDS ORDERED: Sodium Chloride 0.9% 50 ML IV STA (00:11)
[2022-10-23 00:19] LABS: BASOPHILS ABSOLUTE AUTO 0.03 K/uL (0.00-0.10); BASOPHILS PERCENT AUTO 0.4 % (0.1-1.3); EOSINOPHILS ABSOLUTE AUTO 0.15 K/uL (0.00-0.40); EOSINOPHILS PERCENT AUTO 2.2 % (0.0-5.4); HEMATOCRIT 43.3 % (38.4-49.7); HEMOGLOBIN 14.2 g/dL (12.9-16.9); IMMATURE GRAN ABSOLUTE AUTO 0.11 K/uL (0.00-0.23); IMMATURE GRAN PERCENT AUTO 1.6 % (0.0-0.7); LYMPHOCYTES ABSOLUTE AUTO 1.15 K/uL (0.8-3.3); MEAN CORPUSCULAR HGB CONC 32.8 g/dL (31.6-35.5); MEAN CORPUSCULAR VOLUME 85.2 fL (81.4-99.0); MONOCYTES ABSOLUTE AUTO 0.75 K/uL (0.20-0.90); MONOCYTES PERCENT AUTO 11.1 % (3.3-12.6); NEUTROPHILS ABSOLUTE AUTO 4.56 K/uL (1.0-7.6); NEUTROPHILS PERCENT AUTO 67.7 % (40.0-78.1); PLATELET COUNT,PLT 282 K/uL (130-375); RED BLOOD CELL COUNT 5.08 M/uL (4.14-5.76); WHITE BLOOD CELL COUNT,WBC 6.8 K/uL (3.2-11.0)
[2022-10-23 00:20] LABS: C-REACTIVE PROTEIN 4.55 mg/dL (0.0-0.3); CALCIUM 9.1 mg/dL (8.5-10.1); CREATININE 0.9 mg/dL (0.8-1.3); EST CRCL DRUG DOSING (CG) 101.1 mL/min; POTASSIUM,K 3.6 mmol/L (3.6-5.2)
[2022-10-23 00:25] LABS: APPEARANCE,URINE CLEAR (CLEAR); BILIRUBIN,URINE NEGATIVE (NEGATIVE); COLOR,URINE YELLOW (YELLOW); GLUCOSE,URINE NEGATIVE (NEGATIVE); KETONES,URINE NEGATIVE (NEGATIVE); LEUKOCYTE ESTERASE,URINE NEGATIVE (NEGATIVE); NITRITE,URINE NEGATIVE (NEGATIVE); OCCULT BLOOD,URINE TRACE-LYSED (NEGATIVE); PH,URINE 5.5 (5.0-8.0); PROTEIN,URINE NEGATIVE (NEGATIVE); UROBILINOGEN,URINE 0.2 EU/dL (0.2-1.0)
[2022-10-23 00:27] LABS: ANION GAP 10.6 mmol/L (5.0-14.0)
[2022-10-23 00:39] LABS: AMORPHOUS SEDIMENT,URINE NOT SEEN; BACTERIA,URINE FEW; EPITHELIAL CELLS,URINE FEW; MUCUS,URINE NOT SEEN; RBC,URINE 0-5 (0-5); WBC,URINE 0-5 (0-5)
== END 2022-10-23 01:29 | disposition home or self-care (01) ==
LOC: JP.ED 22:44
DX: K57.32 Diverticulitis of large intestine without perforation or abscess without bleeding (principal); E66.9 Obesity, unspecified; Z68.39 Body mass index [BMI] 39.0-39.9, adult; Z88.0 Allergy status to penicillin; Z88.2 Allergy status to sulfonamides; Z79.84 Long term (current) use of oral hypoglycemic drugs
CPT/HCPCS: 36415; 74177; 80048; 81001; 83605; 85025; 86140; 99284; J3490; Q9967

== ENCOUNTER 2023-09-30 18:31 | Emergency (ER) | payer OTHER ==
[2023-09-30] MEDS: Triamcinolone Acetonide 40 MG/ML 1 ML SDV IM ONE (20:16)
[2023-09-30] MEDS: Ketorolac 30 MG/ML SDV IM ONE (20:16)
[2023-09-30 21:13] VITALS: BP 124/69; PULSE 51
== END 2023-09-30 21:50 | disposition home or self-care (01) ==
LOC: JP.ED 18:31
DX: M54.41 Lumbago with sciatica, right side (principal); Z88.0 Allergy status to penicillin; Z88.2 Allergy status to sulfonamides; Z88.8 Allergy status to other drugs, medicaments and biological substances; Z79.899 Other long term (current) drug therapy; Z86.19 Personal history of other infectious and parasitic diseases
CPT/HCPCS: 96372; 99283; J1885; J3301

== ENCOUNTER 2024-05-23 21:32 | Emergency (ER) | payer OTHER ==
[2024-05-23] MEDS: Cyclobenzaprine 10 MG Tab PO ONE (23:10)
[2024-05-23] MEDS: Morphine 2 MG/ML SYRINGE IVPUSH ONE (23:11)
[2024-05-24] MEDS: HYDROmorphone 1 MG/ML Syringe IVPUSH ONE (00:10)
[2024-05-24 01:56] VITALS: BP 131/91; PULSE 90
== END 2024-05-24 02:55 | disposition home or self-care (01) ==
LOC: JP.ED 21:32
DX: S82.891A Other fracture of right lower leg, initial encounter for closed fracture (principal); Z88.0 Allergy status to penicillin; Z88.2 Allergy status to sulfonamides; Z88.8 Allergy status to other drugs, medicaments and biological substances; Z79.899 Other long term (current) drug therapy; W01.198A Fall on same level from slipping, tripping and stumbling with subsequent striking against other object, initial encounter
CPT/HCPCS: 70450; 72170; 73610; 96374; 96375; 99284; A9270; J1171; J2270

== ENCOUNTER 2024-07-03 13:00 | Emergency (ER) | payer OTHER ==
[2024-07-03 13:11] VITALS: BP 151/103; PULSE 76
[2024-07-03] MEDS: Lidocaine 1% with EPINEPHrine 1:100,000 50 ML MDV SUBCUT STA (14:22)
[2024-07-03] MEDS: Bacitracin Oint 1 GM U/D Packet TOP ONE (14:22)
== END 2024-07-03 14:32 | disposition home or self-care (01) ==
LOC: JP.ED 13:00
DX: S61.412A Laceration without foreign body of left hand, initial encounter (principal); I10 Essential (primary) hypertension; Z88.0 Allergy status to penicillin; Z88.2 Allergy status to sulfonamides; Z88.8 Allergy status to other drugs, medicaments and biological substances; Z79.899 Other long term (current) drug therapy; W22.8XXA Striking against or struck by other objects, initial encounter
CPT/HCPCS: 12002; 73130-26-LT; 73130-LT; 99283

== ENCOUNTER 2025-06-14 17:17 | Emergency (ER) | payer OTHER ==
[2025-06-14 17:36] VITALS: BP 136/90; PULSE 61
[2025-06-14] MEDS: Ketorolac 15 MG/ML SDV IVPUSH ONE (19:12)
== END 2025-06-14 19:13 | disposition home or self-care (01) ==
LOC: JP.ED 17:17
DX: S40.012A Contusion of left shoulder, initial encounter (principal); I10 Essential (primary) hypertension; Z79.899 Other long term (current) drug therapy; Z88.0 Allergy status to penicillin; Z88.2 Allergy status to sulfonamides; Z88.8 Allergy status to other drugs, medicaments and biological substances; W01.198A Fall on same level from slipping, tripping and stumbling with subsequent striking against other object, initial encounter
CPT/HCPCS: 71046; 71046-26; 73030-26-LT; 73030-LT; 96374; 96375; 99283-25; J1171; J1885; J7030